=== PATIENT | female | born 1955 | race Caucasian/White ===

== ENCOUNTER 2018-02-08 08:54 | Emergency (ER) | payer MEDICAID ==
[~2018-02-08] VITALS: Ht 160 cm; Wt 63.5 kg
[2018-02-08 09:37] LABS: Basophils # (auto) 0.1 uL; Basophils % (auto) 0.5 % (0.0-2.0); Eosinophils # (auto) 0.1 uL; Eosinophils % (auto) 0.4 % (0.0-7.0); Hematocrit 45.1 % (36.0-46.0); Hemoglobin 14.3 g/dL (12.2-16.2); Lymphocytes # (auto) 1.6 uL; Lymphocytes % (auto) 11.9 % (10.0-50.0); Mean Corpuscular Hgb Conc. 31.7 g/dL (32.0-36.0); Mean Corpuscular Volume 88.1 fL (80.0-100.0); Monocytes # (auto) 0.8 uL; Monocytes % (auto) 5.9 % (0.0-12.0); Neutrophils # (auto) 10.8 uL; Neutrophils % (auto) 81.3 % (37.0-80.0); Platelet Count (auto) 222 10^3/uL (140-450); Red Blood Cells 5.12 10^6/uL (4.0-5.20); Red Cell Distribution Width 17.6 % (11.8-14.3); White Blood Cell 13.3 10^3/uL (4.4-10.8)
[2018-02-08 09:44] LABS: Albumin 3.5 g/dL (3.4-5.0); BUN/Creatinine Ratio 19.8; Potassium 3.7 mmol/L (3.5-5.1)
[2018-02-08 09:47] LABS: Bilirubin, Total 0.6 mg/dL (0.2-1.0); Total Protein 6.5 g/dL (6.4-8.2)
[2018-02-08] MEDS ORDERED: MIDAZOLAM HCL 1MG/1ML-2 ML VIAL IV ONE (10:00)
[2018-02-08] MEDS ORDERED: ETOMIDATE (2MG/ML) 20ML VIAL IV ONE ×3 (11:18→11:30)
[2018-02-08 11:31] VITALS: BP 150/85
== END 2018-02-08 12:40 | disposition home or self-care (01) ==
LOC: ER 08:54
DX: S53.105A Unspecified dislocation of left ulnohumeral joint, initial encounter (principal); I10 Essential (primary) hypertension; Z86.73 Personal history of transient ischemic attack (TIA), and cerebral infarction without residual deficits; Z88.2 Allergy status to sulfonamides; W01.0XXA Fall on same level from slipping, tripping and stumbling without subsequent striking against object, initial encounter; Y93.89 Activity, other specified; Y92.090 Kitchen in other non-institutional residence as the place of occurrence of the external cause; Y99.8 Other external cause status
CPT/HCPCS: 24600; 36415; 73030; 73080; 73090; 80053; 85025; 99152; 99285; J2250; 29105; 96374